=== PATIENT | male | born 1930 | race Caucasian/White ===

== ENCOUNTER 2021-02-19 21:03 | Inpatient (IN) | payer OTHER ==
[~2021-02-19] VITALS: Ht 177.8 cm; Wt 76.9 kg
[2021-02-19 21:03] VITALS: BP 146/87
[2021-02-19 21:16] LABS: ABSOLUTE NEUTROPHILS 6.9 thou/uL (1.4-8.2); EOSINOPHILS 3.3 % (0.0-3.0); HEMATOCRIT 35.5 % (42.0-52.0); HEMOGLOBIN 11.9 gm/dL (14.0-18.0); LYMPHOCYTES 13.4 % (24.0-44.0); MCH 29.7 pg (26.0-34.0); MCHC 33.4 g/dL (28.0-37.0); MCV 88.9 fL (80.0-100.0); MONOCYTES 8.6 % (1.0-8.0); PLATELET COUNT 152 thou/uL (150-400); POLYS 73.7 % (36.0-66.0); RBC 3.99 mil/uL (4.50-6.00); RDW 16.1 % (10.5-14.5); WBC 9.3 thou/uL (4.0-11.0)
[2021-02-19 21:18] LABS: BE(vivo) -0.1 mmol/L (-2 to +3); HCO3 20.8 mmol/L (22.0-26.0); PCO2 24.2 mmHg (35.0-45.0); PO2 93.8 mmHg (80.0-100.0); pH 7.552 (7.360-7.450); sO2 98.1 % (92.0-98.0)
[2021-02-19 21:28] LABS: ANION GAP 9 mmol/L (7-16); BUN 24 mg/dL (7-18); CALCIUM 9.2 mg/dL (8.5-10.1); CHLORIDE 106 mmol/L (98-107); CO2 26 mmol/L (21-32); CREATININE 1.3 mg/dL (0.7-1.3); GLUCOSE 143 mg/dL (74-106); POTASSIUM 3.7 mmol/L (3.5-5.1); SODIUM 141 mmol/L (136-145)
[2021-02-19 21:39] LABS: ALBUMIN 3.9 g/dL (3.4-5.0); SGOT 27 U/L (15-37); SGPT 23 U/L (16-63); TOTAL PROTEIN 7.7 g/dL (6.4-8.2); TROPONIN-I <0.06 ng/mL (<0.06)
[2021-02-19 23:07] VITALS: BP 145/78
[2021-02-20 00:29] VITALS: BP 125/53
[2021-02-20] MEDS ORDERED: ISOSORBIDE DN 110 M1 PO (01:01)
[2021-02-20] MEDS ORDERED: CARVEDILOL3.125 MG PO (01:02)
[2021-02-20] MEDS ORDERED: FUROSEMIDE 40 M40 MG PO (01:03)
[2021-02-20] MEDS ORDERED: COZAAR 25 MG TA25 M1 PO (01:04)
[2021-02-20] MEDS ORDERED: ZOCOR 20 MG TAB20 M1 PO (01:04)
[2021-02-20] MEDS ORDERED: WARFARIN SODIUM5 MG PO (01:05)
[2021-02-20] MEDS ORDERED: PREDNISOLONE ACE5 ML OPHTHALMIC (01:06)
[2021-02-20] MEDS ORDERED: KLOR-CON 1010 MEQ PO (01:07)
--- NOTE | 2021-02-20 03:05 | NUR ---
Arrived from ER around 0015. Adm hx and assessment completed. Med rec completed and verified with pt. O2 at 3L/NC with O2 sat in the upper 90's. Verbalized being short of breath with exertion. MRSA swab sent. A fib,BBB with PVC's per tele. Voided per urinal. Refused SCD's. Bed alarm on.
[2021-02-20 05:13] VITALS: BP 126/65
[2021-02-20 05:36] LABS: INR 2.98; PROTIME 30.8 Seconds (10.5-12.1)
--- NOTE | 2021-02-20 07:09 | EKG ---
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
[2021-02-20 09:15] VITALS: BP 128/79
--- NOTE | 2021-02-20 10:51 | NUR ---
RD consulted r/t weight loss and decreased appetite. Pt reports "nothing tastes good," however, described how good the fruit was earlier today. He reports that he lives in a an [place] facility and gets 30 meals/month there and prepares his other meals/snacks in his apartment. Pt is aware of recommended dietary restrictions (low Na) d/t hx CABG, dx HTN and COPD. On diuretics, which can cause weight fluctuations. Currently with dx pneumonia, on antibiotics. Pt believes he has lost up to 10# recently and reports UBW 170#. Bed scale weights this admission 168-170#. Pt requests supplement during stay. RD to order Ensure Enlive BID. Low nutrition risk.
--- NOTE | 2021-02-20 14:11 | NUR ---
Case opened to follow for dc planning. Case discussed with the care team, chart reveiwed and song writer visited with the pt at bedside. He is a&ox4 and indicates he lives in the indep apts at [facility]. He was admitted with sob and is being treated for pneumonia/chf/copd. He is normally indep in his apt and uses a cane going to the dining room. He has a home nebulizer but no oxygen. He uses their transport to go to the grocery store and their day RN for any health questions or concerns. He has been to the SNF there before and is concerned he may need this at dc due to weakness. He is open to HH as well and will use [facility] if they are in network with his ins plan. Referral called to [facility] SNF admissions and song writer spoke with Amy. She indicates they can check on his insurance to make sure they and [facility] are both in network for dcp renetta. His pcp is Dr. Kun Spear. His son Brando is his dpoa for health care and emergency contact if needed. A copy of his AD/DPOA document is on the chart. His dtr Clint who lives out of state is an alternate. Will ask for therapy evaluations for recommendations for SNF or HH referral at dc. Cm role introduced. Will follow.
--- NOTE | 2021-02-20 14:22 | 2DMMODE ---
[facility] [place] [address] 2 D/M-MODE ECHOCARDIOGRAM Name: Kalne WALKER Room #: 363-P ADM IN M.R.#: [id number] Admission: 02/19/21 Attend Phys: Qasim Jensen MD Discharge: Date of : [birth year] Report #: [id number] THIS REPORT FOR: cc: Kun Spear MD, Logan F. MD Santiago, Patrick MD [facility] ~ APPROVED REPORT Study performed: 02/20/2021 13:17:34 EXAM: Comprehensive 2D, Doppler, and color-flow Echocardiogram Patient Location: Bedside Room #: 363 Status: routine BSA: 1.95 HR: 80 bpm BP: 128/79 mmHg Rhythm: Atrial Fibrillation Other Information Study Quality: Good Indications Heart failure. Hx: CABG, ISCM, CHF, AICD, AFIB, COPD 2D Dimensions RVDd: 38.14 mm IVSd: 11.07 (7-11mm) LVOT Diam: 24.04 (18-24mm) LVDd: 59.76 mm PWd: 11.29 (7-11mm) Ascending Ao: 42.02 (22-36mm) LVDs: 50.99 (25-40mm) Left Atrium: 50.75 (27-40mm) Aortic Root: 39.92 mm Volumes Left Atrial Volume (Systole) Single Plane 4CH: 123.70 mL Single Plane 2CH: 103.95 mL LA ESV Index: 61.00 mL/m2 Aortic Valve AoV Peak Rosendo.: 1.88 m/s AO Peak Gr.: 14.15 mmHg LVOT Max P.55 mmHg AO Mean Gr.: 7.59 mmHg [facility] [address] [place] [address] 2 D/M-MODE ECHOCARDIOGRAM Name: Kalen WALKER Room #: 363-[facility]#: [id number] Admission: 02/19/21 Attend Phys: Qasim Jensen, Discharge: Date of : [birth year] Report #: [id number] AO V2 Mean: 1.32 m/s LVOT Max V: 0.80 m/s AO V2 VTI: 37.79 cm GABI Vmax: 1.93 cm2 Mitral Valve MV Decel. Time: 164.20 ms MV E Max Rosendo.: 1.25 m/s Pulmonary Valve PV Peak Rosendo.: 0.92 m/s PV Peak Gr.: 3.37 mmHg Tricuspid Valve TR Peak Rosendo.: 3.06 m/s TR Peak Gr.: 37.41 mmHg Left Ventricle Left ventricle is mild to moderately dilated. There is normal left ventricular wall thickness. Left ventricular systolic function is moderately decreased. LVEF is 30-35%. This study is not technically sufficient to allow evaluation of the LV diastolic function due to atrial fibrillation. Right Ventricle The right ventricle is normal size. Right ventricle is hypokinetic. Device lead is present in the right ventricle. Atria Left atrium is severely dilated. Right atrium is mildly dilated. Aortic Valve Aortic valve is trileaflet; moderately calcified. Mild aortic regurgitation. Mild aortic stenosis. Mitral Valve The mitral valve is normal in structure; mildly thickened. Mild mitral annular calcification. Mild to moderate mitral regurgitation. Tricuspid Valve The tricuspid valve is normal in structure. Mild tricuspid regurgitation. Estimated PAP is 40-45mmHg. Pulmonic Valve The pulmonary valve is normal in structure. Mild pulmonic regurgitation. [facility] [place] [address] 2 D/M-MODE ECHOCARDIOGRAM Name: Kalen WALKER Room #: 363-P [facility] IN M.R.#: [id number] Admission: 02/19/21 Attend Phys: Qasim Jensen, Discharge: Date of : [birth year] Report #: [id number] Great Vessels Aortic root is dilated (4.0cm). Ascending aorta is dilated (4.2cm). IVC is not visualized. Pericardium There is no pericardial effusion. <Conclusion> Moderately dilated left ventricle/normal wall thickness Global hypokinesis ejection fraction 30-35% Normal right ventricular size//hypokinetic Pacer wire detected in the right ventricle Severe left atrial enlargement Moderate right atrial enlargement Color-flow Doppler study was performed of the aortic/mitral/tricuspid/pulmonary valve Moderately calcified aortic valve Mild aortic valvar stenosis mean gradient of 7 mmHg Trace aortic valve insufficiency Mild mitral valve insufficiency Mild tricuspid valve insufficiency Pulmonary systolic pressure estimated 40 mmHg No pericardial effusion Normal aortic root size Mildly dilated ascending aorta estimated 4.2 cm <ELECTRONICALLY SIGNED> By: Rajeev Cheng MD, FACC 02/20/211421 21 21 Rajeev Cheng MD, FACC /INF
--- NOTE | 2021-02-20 15:16 | NUR ---
FAXED REFERRAL TO [facility]. WILL CONFIRM WITH [facility]/ADMISSIONS THAT THEY RECEIVED AND CAN ACCEPT PATIENT IN THEIR RESIDENTIAL FACILITY. [facility] P [phone]; FAX [phone]; [facility] [phone]
[2021-02-20 16:21] VITALS: BP 117/51
[2021-02-20 19:00] VITALS: BP 112/58
[2021-02-21 03:46] VITALS: BP 118/71
[2021-02-21 05:56] LABS: INR 2.8; PROTIME 29.1 Seconds (10.5-12.1)
[2021-02-21 05:59] LABS: CALCIUM 7.8 mg/dL (8.5-10.1); CREATININE 1.2 mg/dL (0.7-1.3); MAGNESIUM 2.2 mg/dL (1.8-2.4); POTASSIUM 3.9 mmol/L (3.5-5.1)
--- NOTE | 2021-02-21 06:15 | NUR ---
Pt. requested sleep med last night , [employer] notified and melatonin given to pt. He stated he slept for few hours and that sleep med helped. Gram positive blood culture called to [employer] , no new order. He has been afebrile.Maintaining O2 sat in the mid 90's on 3 L/NC. He reported being short of breath with exertion. Pt. had 7 beat run of V tach ,asynptomatic , [employer] notified. Voided per urinal. Bed alarm on for safety. Making some progress towards care plan goals.
[2021-02-21 08:08] VITALS: BP 151/75
--- NOTE | 2021-02-21 11:33 | NUR ---
FAXED PT EVALUATION AND TODAYS PROGRESS NOTES. WILL FAX OT EVALUATION NOTES WHEN COMPLETED. [facility] [phone]; FAX [phone]
[2021-02-21 15:46] VITALS: BP 111/57
--- NOTE | 2021-02-21 17:01 | NUR ---
Both PT/OT evals were faxed to admissions at [facility] today. They have submitted for ins auth. Covid now test completed and neg. Test results faxed as well. They are awaiting ins auth and then can accept. All parties anticipating dc to SNF tomorrow. Will follow.
--- NOTE | 2021-02-21 19:27 | NUR ---
ASSUMED PATIENT CARE AT 0700. A/0 X4. TOLERATED ON RA. UP WITH STANDBY. SLOWLY TOWARDS POC GOALS.
[2021-02-21 19:35] VITALS: BP 124/67
[2021-02-22 05:58] LABS: ABSOLUTE NEUTROPHILS 11.6 thou/uL (1.4-8.2); BASOPHILS 0.1 % (0.0-2.0); HEMATOCRIT 34.2 % (42.0-52.0); HEMOGLOBIN 11.2 gm/dL (14.0-18.0); LYMPHOCYTES 4.3 % (24.0-44.0); MCH 29.4 pg (26.0-34.0); MCHC 32.9 g/dL (28.0-37.0); MCV 89.5 fL (80.0-100.0); MONOCYTES 3.5 % (1.0-8.0); PLATELET COUNT 131 thou/uL (150-400); POLYS 92.1 % (36.0-66.0); RBC 3.82 mil/uL (4.50-6.00); RDW 16.2 % (10.5-14.5); WBC 12.6 thou/uL (4.0-11.0)
[2021-02-22 06:15] VITALS: BP 133/80
[2021-02-22 06:25] LABS: INR 3.04; PROTIME 31.4 Seconds (10.5-12.1)
--- NOTE | 2021-02-22 06:50 | NUR ---
Received pt. in RA and tolerated well all night with O2 sat in the mid to upper 90's. He still gets short of breath with exertion but better. He didn't sleep much last night despite sleep med. Voided per urinal and ambulated with assist to bathroom using walker. Afebrile. A fib,BBB with PVC's per tele. Progressing towards discharge goals.
[2021-02-22 08:40] VITALS: BP 133/80
--- NOTE | 2021-02-22 13:58 | NUR ---
JAILENE S/W OSORIO @ [facility] WHO INDICATED THEY RECEVEID INSUR AUTH FOR JOAN. OSORIO TO ARRANGE TRANSPORATION FOR 1500. JAILENE FAXED ORDERS TO [phone]. JAILENE ASKED US TO MAKE CHART COPY. JAILENE PROVIDED BEDSIDE RN WITH NUMBER TO CALL REPORT [phone] - REHAB UN[facility]. JAILENE LFT VM FOR PT'S SON, JANEEN.
--- NOTE | 2021-02-22 16:14 | NUR ---
ASSUMED PATIENT CARE AT 0700. A/O X4. AMBULTAED IN ROOM WITH WALKER. PROGRESSING TOWARDS POC GOALS.
== END 2021-02-22 16:19 | DRG 291 ==
LOC: ER 21:03 → 3W 22:23 → EROBS 22:23 → 3W 23:57
PROVIDERS: Emergency Medicine; Nurse Practitioner Family; ADMIT Internal Medicine; ATTEND Internal Medicine
PROC: 4B02XSZ Measurement of Cardiac Pacemaker, External Approach (ICD-10-PCS; principal; 2021-02-21)
DX: I11.0 Hypertensive heart disease with heart failure (principal); J18.9 Pneumonia, unspecified organism; J96.01 Acute respiratory failure with hypoxia; J44.1 Chronic obstructive pulmonary disease with (acute) exacerbation; J44.0 Chronic obstructive pulmonary disease with (acute) lower respiratory infection; I48.21 Permanent atrial fibrillation; I50.23 Acute on chronic systolic (congestive) heart failure; Z20.822 Contact with and (suspected) exposure to COVID-19; I25.10 Atherosclerotic heart disease of native coronary artery without angina pectoris; E78.5 Hyperlipidemia, unspecified; Z66 Do not resuscitate; R53.81 Other malaise; R63.4 Abnormal weight loss; G47.00 Insomnia, unspecified; I25.5 Ischemic cardiomyopathy; Z60.2 Problems related to living alone; Z95.1 Presence of aortocoronary bypass graft; Z88.8 Allergy status to other drugs, medicaments and biological substances; Z88.1 Allergy status to other antibiotic agents; Z91.041 Radiographic dye allergy status; Z95.810 Presence of automatic (implantable) cardiac defibrillator; Z87.891 Personal history of nicotine dependence; Z87.81 Personal history of (healed) traumatic fracture; Z68.24 Body mass index [BMI] 24.0-24.9, adult; Z79.01 Long term (current) use of anticoagulants; Z79.899 Other long term (current) drug therapy
CPT/HCPCS: 10879